=== PATIENT | male | born 1980 | race Caucasian/White ===

== ENCOUNTER → 2018-09-05 | Day surgery (SDC) | payer OTHER ==
[2018-09-04 16:15] LABS: BASOPHILS % 0.4 % (0.0-1.0); EOSINOPHILS # (AUTO) 0.2 (0.0-0.4); EOSINOPHILS % 2.8 % (0.0-6.0); HEMATOCRIT 39.5 % (38.2-49.6); HEMOGLOBIN 13.6 g/dL (14.0-18.0); LYMPHOCYTES # (AUTO) 2.7 (1.0-3.2); LYMPHOCYTES % 39.7 % (18.0-39.1); MEAN CORPUSCULAR HEMOGLOBIN 31.9 pg (28-32); MEAN CORPUSCULAR HGB CONC 34.4 g/dL (31-35); MEAN CORPUSCULAR VOLUME 92.7 fL (81-99); MONOCYTES # (AUTO) 0.6 (0.2-0.8); MONOCYTES % 8.1 % (4.4-11.3); NEUTROPHILS # (AUTO) 3.3 (2.1-6.9); NEUTROPHILS % 48.9 % (38.7-80.0); PLATELET COUNT 177 x10e3/uL (140-360); RED BLOOD COUNT 4.26 x10e6/uL (4.3-5.7); RED CELL DISTRIBUTION WIDTH 11.3 % (11.7-14.4)
[2018-09-04 16:35] LABS: ALANINE AMINOTRANSFERASE 10 IU/L (0-55); ALBUMIN 3.7 g/dL (3.5-5.0); ALBUMIN/GLOBULIN RATIO 1.3 (0.8-2.0); ALKALINE PHOSPHATASE 76 IU/L (40-150); ANION GAP 9.2 mmol/L (8-16); BLOOD UREA NITROGEN 15 mg/dL (7-26); BUN/CREATININE RATIO 19 (6-25); CALCIUM 9.2 mg/dL (8.4-10.2); CARBON DIOXIDE 27 mmol/L (22-29); CHLORIDE 107 mmol/L (98-107); EST GLOMERULAR FILTRATION RATE > 60 ML/MIN (60-); GLUCOSE 85 mg/dL (74-118); POTASSIUM 4.2 mmol/L (3.5-5.1); SODIUM 139 mmol/L (136-145)
[2018-09-05] VITALS (7 sets, daily range): BP systolic 102–117; BP diastolic 63–90
[~2018-09-05] VITALS: Ht 190.5 cm; Wt 104.3 kg
[~2018-09-05] MED LIST: ALPRAZOLAM 0.5 MG TAB ONE; ASPIR 8181 MG PO; DIPHENHYDRAMINE HCL 25 MG CAP ONE; FENTANYL CITRATE/PF 100MCG/2 ML INJ ONE; FLECAINIDE ACE100 MG PO; HEPARIN SOD (PORCINE) 1000 UNIT/ML 30ML ONE; HEPARIN SOD/SOD CHLORIDE 2,000 ML ONE; IOPAMIDOL 370 MG/ML 200 ML INFUS..BTL INJ ONE; LIDOCAINE HCL 2% LOCAL 20 ML VIAL ONE; LISINOPRIL10 MG PO; METOPROLOL SUCC25 MG PO; MIDAZOLAM HCL 2 MG/2 ML VIAL ONE; NITROGLYCERIN/D5W 200 MCG/ML 250 ML ONE; SODIUM CHLORIDE 0.9% 1000ML 1,000 ML ONE; TRINTELLIX PO; VERAPAMIL HCL 2.5 MG/ML 2 ML VIAL ONE
--- NOTE | 2018-09-05 08:40 | NUR ---
0840AM Received in #9 [facility] pot Dr Ruiz Report received fromBrittanie ZAMUDIO,No fix . Back to baseline orientation. Respiration shallow and regular 98% on room air. Abdomen soft and non tender. Denies necessity to defecate or urinate. Rt TR band has 12cc air. NO gross signs pain pallor,pressure,pain or dysthymia. Left hand iv infusing at 100cchr 0.9 NS. No signs of infiltration Family spoke with MD Reviewed POC with MD. Aware of importance to f/o 2wks. Copies of POC with family. Bilateral PP x4 PD DP. TR band Titration ok in 60minutes. Tolerated po intake. Void qs. ds/rn
--- NOTE | 2018-09-05 09:30 | NUR ---
0930 Titration 12cc balloon. to rt tr band site. -2cc Positive vol 11cc Positive rt radial pulse. 0945 -2cc Positive ,volume 8cc. Positive rt radial pulse. 1000 -2cc Positive,volume 6cc . Positive rt radial pulse. 1015 -2cc Positive,volume 3cc . Positive rt radial pulse. 1030 -2cc Positive,volume no volume in balloon sterile 2x2 in place with Tegaderm, Coban with splint to right wrist. No gross signs of pain or pallor. ok for dc ds/rn
--- NOTE | 2018-09-05 10:30 | NUR ---
1030 TR band titration completed ready for dc. No bleeding or hematoma. Iv removed NO s/s infiltration, Coban dressing to iv and with splint and Coban dressing to rt TR band site. No gross signs pain,pallor,pressure or dysrhythmia. Has copies of plan of care. Aware of importance of f/o care.To private car per [facility] employee. Denies c/o CP or SOB aware of importance of f/o care. ds/rn
--- NOTE | 2018-09-05 15:43 | Operative Report ---
DATE OF PROCEDURE: 09/05/2018 SURGEON: Rajeev Ruiz MD [employer]ARDI[employer] POCKET [employer] PROCEDURE NOTE INDICATION: Coronary artery disease and abnormal stress test. PROCEDURES PERFORMED: 1. Left heart catheterization, selective coronary angiography, left ventriculography. 2. Deployment of right wrist TR band. COMPLICATIONS: None. RECOMMENDATIONS: Medical therapy. DESCRIPTION OF PROCEDURE: Access was obtained in the right radial artery. A 5-Yi sheath was placed. Diagnostic coronary angiogram revealed minimal coronary artery disease of 10% to 20% luminal stenosis in all coronary vessels. No critical stenosis or occlusions were noted. No intervention was deemed necessary. LV ejection fraction of 40% with mild global hypokinesis and mildly dilated left ventricle. LV end-diastolic pressure of 8. No gradient across the aortic valve pullback. Right wrist sheath and catheter were removed. TR band applied. The patient was discharged home on the same day. Rajeev Ruiz MD KSB/MODL /[id number]
== END | disposition home or self-care (01) ==
LOC: CATH LAB 05:52
PROVIDERS: ATTEND Internal Medicine Interventional Cardiology
DX: I25.10 Atherosclerotic heart disease of native coronary artery without angina pectoris (principal); I48.91 Unspecified atrial fibrillation; Z01.812 Encounter for preprocedural laboratory examination; Z79.82 Long term (current) use of aspirin
CPT/HCPCS: 36415; 80053; 85025; 93458; C1769; C1887; J1644; J2001; J2250; J7030; Q9967